=== PATIENT | male | born 1960 | race Caucasian/White ===

== ENCOUNTER 2022-11-25 07:49 | Outpatient (OUT) | payer OTHER, SELFPAY ==
[2022-11-25 09:07] LABS: Alanine Aminotransferase 43 U/L (16-63); Anion Gap 13.4; Aspartate Amino Transferase 17 U/L (15-37); BUN Creatinine Ratio 16.7; Calcium 8.8 mg/dL (8.5-10.1); Carbon Dioxide 29.2 mmol/L (21.0-32.0); Chloride 99 mmol/L (98-107); Chol HDL Ratio 5.4; Cholesterol 174 mg/dL (<=200); Estimated GFR (African America >60 (>=60); Estimated GFR (Non-African Ame >60 (>=60); Glucose 109 mg/dL (74-106); HDL Cholesterol 32 mg/dL (40-60); Potassium 4.6 mmol/L (3.5-5.1); Sodium 137 mmol/L (136-145); Triglycerides 518 mg/dL (<=150); VLDL CHOLESTEROL 103.6 mg/dL
[2022-11-25 09:12] LABS: LDL Cholesterol Direct 71 mg/dL
== END 2022-11-25 07:50 | disposition home or self-care (01) ==
LOC: LAB 07:49
PROVIDERS: PCP Family Medicine
DX: E78.5 Hyperlipidemia, unspecified (principal); I10 Essential (primary) hypertension
CPT/HCPCS: 36415; 80048; 80061; 83721; 84450; 84460

== ENCOUNTER 2023-02-03 05:44 | Emergency (ER) | payer OTHER, SELFPAY ==
[2023-02-03] VITALS (8 sets, daily range): BP systolic 134–138; BP diastolic 77–89; PULSE 72–73; RESP 18–35; TEMP 36.6; O2SAT 95–98; BMI 29.9
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
--- NOTE | 2023-02-03 06:28 | ECG_ITS ---
The [facility] Test Date: 2023-02-03 Pat Name: EVI JACOME Department: Room: - Gender: Male [employer]: : 1960 Requested By: AMELIE FAJARDO Order Number: [id number] Reading MD: ERIC HOOK Measurements Intervals [place] Rate: 67 P: 90 CT: 130 QRS: 77 QRSD: 82 T: 73 QT: 380 QTc: 396 Interpretive Statements 1100 Sinus rhythm 4068 Nonspecific Twave abnormality 9130 borderline ECG No previous ECG available for comparison Electronically Signed On 02-03-2023 7:10:46 EST by ERIC HOOK
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
[2023-02-03] MEDS: METHOCARBAMOL 500 MG TABLET 1000 MG PO (08:37)
[2023-02-03] MEDS: KETOROLAC TROMETHAMINE 10 MG TABLET PO (08:37)
[2023-02-03] MEDS: HYDROCODONE/ACET 5-325 MG TABLET 1 TAB PO (08:37)
== END 2023-02-03 09:01 | disposition home or self-care (01) ==
PROVIDERS: Emergency Provider Emergency Medicine; PCP Family Medicine
DX: S62.342A Nondisplaced fracture of base of third metacarpal bone, right hand, initial encounter for closed fracture (principal); S62.344A Nondisplaced fracture of base of fourth metacarpal bone, right hand, initial encounter for closed fracture; S20.219A Contusion of unspecified front wall of thorax, initial encounter; S09.8XXA Other specified injuries of head, initial encounter; S16.1XXA Strain of muscle, fascia and tendon at neck level, initial encounter; S00.31XA Abrasion of nose, initial encounter; S80.211A Abrasion, right knee, initial encounter; V49.49XA Driver injured in collision with other motor vehicles in traffic accident, initial encounter
CPT/HCPCS: 70450; 71045; 72125; 73130; 73562; 73590; 93005; 99285

== ENCOUNTER 2023-02-05 13:58 | Outpatient (OUT) | payer OTHER, SELFPAY ==
--- OUTSIDE RECORDS SUMMARY | 2023-02-05 14:01 | XMS_ITS | CCD ---
Author Name Unknown Address [address] [facility] [address] [place] [address] Organization [facility] Care Team Providers Care Oracle Soa Consultant Name Role Phone TRABOULSSI, MOURHAF Unavailable Unavailable TRABOULSSI, MOURHAF Unavailable Unavailable MISC, DR VIVEROS Admitting Unavailable MISC, DR VIVEROS Attending Unavailable THOMSON, DR MARISA Sarkar Primary Care Unavailable THOMSON, DR MARISA Sarkar Attending Unavailable THOMSON, DR MARISA Sarkar Primary Care Unavailable THOMSON, DR MARISA Sarkar Admitting Unavailable REQUEST, DR MICHEL LISTED Admitting Unavaila ble REQUEST, DR MICHEL LISTED Attending Unavaila ble REQUEST, DR MICHEL LISTED Consulting Unavaila ble THOMSON, DR MARISA Sarkar Primary Care Unavailable THOMSON, DR MARISA Sarkar Consulting Unavailable THOMSON, DR MARISA Sarkar Attending Unavailable THOMSON, DR MARISA Sarkar Admitting Unavailable THOMSON, DR MARISA Sarkar Primary Care Unavailable WEST, DR STEVE Farah Consulting Unavailable ZIEBER, DR ALIREZA Chicas Consulting Unavailable SIEGALROSA Attending Unavailable SIEGAL, ROSA Admitting Unavailable THOMSON, DR MARISA Sarkar Primary Care Unavailable CardonaMady Consulting Unavailable SIEGALROSA Consulting Unavailable THOMSON, DR MARISA Sarkar Attending Unavailable THOMSON, DR MARISA Sarkar Consulting Unavailable THOMSON, DR MARISA Sarkar Primary Care Unavailable THOMSON, DR MARISA Sarkar Admitting Unavailable ZIEBER, DR ALIREZA Chicas Consulting Unavailable THOMSON, DR MARISA Sarkar Attending Unavailable THOMSON, DR MARISA Sarkar Consulting Unavailable THOMSON, DR MARISA Sarkar Primary Care Unavailable THOMSON, DR MARISA Sarkar Admitting Unavailable ZIEBER, DR ALIREZA Chicas Consulting Unavailable TIMMIS, DR ADDISON Admitting Unavailable TIMMIS, DR ADDISON Attending Unavailable TIMMIS, DR ADDISON Consulting Unavailable THOMSON, DR MARISA Sarkar Primary Care Unavailable WEST, DR STEVE Farah Consulting Unavailable THOMSON, DR MARISA Sarkar Attending Unavailable THOMSON, DR MARISA Sarkar Consulting Unavailable THOMSON, DR MARISA Sarkar Primary Care Unavailable THOMSON, DR MARISA Sarkar Admitting Unavailable ZIEBER, DR ALIREZA Chicas Consulting Unavailable ANITA, DR MARISA Sarkar Attending Unavailable ANITA, DR MARISA Sarkar Admitting Unavailable ANITA, DR MARISA Sarkar Consulting Unavailable ANITA, DR MARISA Sarkar Primary Care Unavailable ROSA RAE Admitting Unavailable ROSA RAE Attending Unavailable ANITA, DR MARISA Sarkar Primary Care Unavailable Brandon Molina Unavailable Unavailable Unavailable Marisa Thomson Unavailable MD Marisa Thomson Primary Care Provider DO Arnav Leyva Attending Provider Arnav Leyva Unavailable Jonathan Still Unavailable Dr. Marisa Thomson Primary Care Unavailab jackie Garcia, Dr. Baker Attending Unavaila ble Jose, Dr. Baker Referring Unavaila ble Medications Current Medications Medication Drug Class(es) Dates Sig (Normalized) Sig (Original) Acetaminophen (1 source) Tylenol Active CBD gummies (1 source) CBD gummies Acti ve [facility] Natural Fish Oil 1000 MG (2 sources) take 2 capsules by mouth once daily [facility] Natural Fish Oil 1000 MG TAKE 2 CAPSULES BY MOUTH DAILY Oral for 30 Active docusate sodium 100 mg oral capsule (2 sources) take 1 capsule by mouth every twenty-four hours Stool Softener 100 MG 1 capsule as needed Orally Once a day Active Vitamin D3 125 MCG (5000 UT) (2 sources) take 1 tablet by jabier th once daily Vitamin D3 125 MCG (5000 UT) 1 tablet Orally Once a day Active Completed/Discontinued Medications Medication Drug Class(es) Dates Sig (Normalized) Sig (Original) aspirin 81 mg delayed release oral tablet (7 sources) Platelet Aggregation Inhibitor, Nonsteroidal Anti-inflammatory Drug Start: 10-15-2021 take 1 tablet by mouth once daily Aspirin 81 MG Oral Tablet Delayed Release TAKE 1 TABLET DAILY. Quantity: 90 Refills: 3 Ordered: 14-Oct-2022 Venecia Garcia MD Start : 15-Oct-2021 Active Fill at patient request only n take 1 tablet by mouth once nicole y Aspirin 81 81 MG 1 tablet Orally Once a day Active atorvastatin 80 mg oral tablet (7 sources) HMG-CoA Reductase Inhibitor Start: 07-27-2022 take 1 tablet by mouth once daily at bedtime Atorvastatin Calcium 80 MG Oral Tablet TAKE ONE TABLET BY MOUTH DAILY AT BEDTIME Quantity: 90 Refills: 3 Ordered: 27-Jul-2022 Yobany Ordonez APRNFidelAUTO BODY ESTIMATORCrissy Start : 27-Jul-2022 Active take 1 tablet by jabier th every twenty-four hours Atorvastatin Calcium 80 MG 1 tablet Oral ly Once a day Active celecoxib 200 mg oral capsule (6 sources) Nonsteroidal Anti-inflammatory Drug take 1 capsule by mouth once daily at mealtime Celecoxib 200 MG Oral Capsule TAKE 1 CAPSULE DAILY WITH A MEAL. Quantity: 0 Refills: 0 Ordered: 15-Oct-2021 DO Active CeleBREX Active cholecalciferol 0.125 mg oral capsule (5 sources) Vitamin D take 1 capsule by mouth once daily Vitamin D3 125 MCG (5000 UT) Oral Capsule TAKE 1 CAPSULE Daily Quantity: 0 Refills: 0 Ordered: 15-Oct-2021 DO Active docosahexaenoic acid 120 mg / eicosapentaenoic acid 180 mg oral capsule (5 sources) take 1 capsule by mouth twice daily Fish Oil 1000 MG Oral Capsule Take 1 capsule twice daily Quantity: 0 Refills: 0 Ordered: 15-Oct-2021 DO Active hydroCHLOROthiazide 12.5 mg / lisinopril 20 mg oral tablet (7 sources) Thiazide Diuretic, Angiotensin Converting Enzyme Inhibitor take 1 tablet by mouth twice daily Lisinopril-hydroCHL OROthiazide 20-12.5 MG Oral Tablet TAKE 1 TABLET TWICE DAILY. Quantity: 180 Refills: 3 Ordered: 14-Oct-2022 Venecia Garcia MD Active take 1 tablet by jabier th every twenty-four hours Lisinopril-hydroCHLOROthiazide 20-12.5 M G 1 tablet Orally Once a day Active krill oil 500 mg oral capsule (4 sources) take 1 capsule by mouth once daily [place]-3 500 MG Oral Capsule TAKE 1 CAPSULE Daily Quantity: 0 Refills: 0 Ordered: 15-Oct-2021 DO Active metoprolol tartrate 100 mg oral tablet (8 sources) beta-Adrenergic Ramirez Start: 08-24-2022 take 1 tablet by mouth twice daily Metoprolol Tartrate 100 MG Oral Tablet Take 1 tablet twice daily Quantity: 60 Refills: 11 Ordered: 24-Aug-2022 Venecia Garcia MD Start : 24-Aug-2022 Active take 1 tablet by jabier th every twelve hours Metoprolol Tartrate 50 MG 1 tablet with food Orally Twice a day Active take 1 tablet by mouth twice ranjana ly Metoprolol Tartrate 100 MG Oral Tablet Take 1 tablet twice daily Quantity: 180 Refills: 3 Ordered: 04-Aug-2021 Venecia Garcia MD Active Stool Softener TABS (5 sources) Stool Softener T ABS TAKE 1 TABLET DAILY DIRECTED. Quantity: 0 Refills: 0 Ordered: 15-Oct-2021 DO Active Super B Complex TABS (5 sources) Super B Complex TABS TAKE 1 TABLET DAILY DIRECTED. Quantity: 0 Refills: 0 Ordered: 15-Oct-2021 DO Active traZODone hydrochloride 150 mg oral tablet (6 sources) Serotonin Reuptake Inhibitor Start: 2 take 1 tablet by mouth at bedtime traZODone HCl - 150 MG Oral Tablet TAKE 1 TABLET AT BEDTIME. Quantity: 0 Refills: 0 Ordered: 02-Oct-2021 DO Start : 04-Sep-2021 Active traZODone HCl Ac tive triamcinolone acetonide 40 mg/ml injectable suspension (1 source) Corticosteroid Start: 03-02-2022 Kenalog-40 Feb, 40 mg 24 hr venlafaxine 150 mg extended release oral capsule (2 sources) Serotonin and Norepinephrine Reuptake Inhibitor take 1 capsule by mouth every twenty-four hours Venlafaxine HCl ER 150 MG 1 capsule with food Orally Once a day Not-Taking Problems Active Problems Problem Classification Problem Date Documented Da te Episodic/Chronic Abdominal pain (6 sources) Generalized abdominal tenderness; Translations: [Finding of sensation of abdomen] Onset: 1 Episodic Acute cerebrovascular disease (6 sources) Cerebrovascular accident; Translations: [Cerebral artery occlusion, unspecified with cerebral infarction] Chronic Alcohol-related disorders (2 sources) Alcoholic liver damage; Translations: [Alcoholic liver disease, unspecified] Chronic Coronary atherosclerosis and other heart disease (1 source) Coronary atherosclerosis and other heart disease Onset: 8 Disorders of lipid metabolism (6 sources) Hyperlipidemia; Translations: [Other and unspecified hyperlipidemia] Chronic Essential hypertension (5 sources) Benign essential hypertension; Translations: [Benign essential hypertension] Chronic Gastrointestinal hemorrhage (2 sources) Gastrointestinal hemorrhage; Translations: [Melena] Episodic Malaise and fatigue (6 sources) Chronic fatigue syndrome; Translations: [Chronic fatigue syndrome] Chronic Other connective tissue disease (4 sources) Other muscle spasm; Translations: [OTHER MUSCLE SPASM] Onset: 1 Episodic Other gastrointestinal disorders (2 sources) Diarrhea; Translations: [Diarrhea, unspecified] Episodic Other gastrointestinal disorders (2 sources) Urgent desire for stool; Translations: [Fecal urgency] Episodic Other lower respiratory disease (7 sources) Shortness of breath; Translations: [Dyspnea] Onset: 8 Episodic Other non-traumatic joint disorders (4 sources) Other specified arthritis, unspecified site; Translations: [OTHER SPECIFIED ARTHRITIS UNS SITE] Onset: 2 Chronic Other non-traumatic joint disorders (1 source) Derangement of right shoulder joint; Translations: [Other specific joint derangements of right shoulder, not elsewhere classified] Chronic Other non-traumatic joint disorders (1 source) Other specific joint derangements of right shoulder, not elsewhere classified Chronic Other non-traumatic joint disorders (2 sources) Pain in unspecified hip; Translations: [PAIN IN UNSPECIFIED HIP] Onset: 1 Resolved: 1 Episodic Other non-traumatic joint disorders (1 source) Pain in unspecified knee; Translations: [PAIN IN UNSPECIFIED KNEE] Onset: 1 Episodic Other non-traumatic joint disorders (4 sources) Pain in right hip; Translations: [PAIN IN RIGHT HIP] Onset: 1 Episodic Other non-traumatic joint disorders (1 source) Pain in left hip; Translations: [PAIN IN LEFT HIP] Onset: 1 Episodic Other non-traumatic joint disorders (1 source) Pain in right knee; Translations: [PAIN IN RIGHT KNEE] Onset: 1 Episodic Other non-traumatic joint disorders (1 source) Pain in left knee; Translations: [PAIN IN LEFT KNEE] Onset: 1 Episodic Other non-traumatic joint disorders (1 source) Pain in right shoulder Episodic Other non-traumatic joint disorders (1 source) Other specified joint disorders, right shoulder Episodic Other nutritional; endocrine; and metabolic disorders (1 source) Obesity; Translations: [Obesity, unspecified] Chronic Other nutritional; endocrine; and metabolic disorders (5 sources) Body mass index 25-29 - overweight; Translations: [Body mass index (BMI) 28.0-28.9, adult] Episodic Other screening for suspected conditions (not mental disorders or infectious disease) (2 sources) Elevated liver enzymes level; Translations: [Other specified abnormal findings of blood chemistry] Episodic Pancreatic disorders (not diabetes) (2 sources) Exocrine pancreatic insufficiency; Translations: [Exocrine pancreatic insufficiency] Episodic Peripheral and visceral atherosclerosis (2 sources) Peripheral vascular disease, unspecified; Translations: [PAD (peripheral artery disease)] Chronic Spondylosis; intervertebral disc disorders; other back problems (7 sources) Spondylosis without myelopathy or radiculopathy, lumbar region; Translations: [Spondylosis without myelopathy or radiculopathy, cervical region] Onset: 1 Chronic Spondylosis; intervertebral disc disorders; other back problems (15 sources) Radiculopathy, site unspecified; Translations: [Spinal stenosis, cervical region] Onset: 1 Episodic Substance-related disorders (8 sources) Smoker; Translations: [Nicotine dependence, unspecified, uncomplicated] Onset: 1 Resolved: 1 Chronic Comment on above: 1 PPD; Unclassified (2 sources) Shortness of breath / R06.02(ICD-9) Onset: 8 Unclassified (1 source) Chronic fatigue, unspecified / R53.82(ICD-9) Onset: 8 Past or Other Problems Problem Classification Problem Date Documented Da te Episodic/Chronic Other injuries and conditions due to external causes (4 sources) Unspecified foreign body in respiratory tract, part unspecified causing other injury, initial encounter; Translations: [UNS FB RESP TRACT UNS OTH INJ INIT] Onset: 05-16-2020 Episodic Other nutritional; endocrine; and metabolic disorders (7 sources) Body mass index 30+ - obesity; Translations: [Body Mass Index 31.0-31.9, adult] Resolved: 10-15-2021 Chronic Other nutritional; endocrine; and metabolic disorders (6 sources) Overweight; Translations: [Overweight] Resolved: 10-15-2021 Episodic Other nutritional; endocrine; and metabolic disorders (5 sources) Overweight in adulthood with body mass index of 25 or more but less than 30; Translations: [Body Mass Index 28.0-28.9, adult] Resolved: 10-15-2021 Episodic Other upper respiratory disease (1 source) Laryngeal spasm; Translations: [LARYNGEAL SPASM] Onset: 05-23-2020 Episodic Results Test Name Value Interpretation Reference Range Facility Office Visit (Cardiology)on 10-14-2022 Follow-up visit Diagnoses/Problems Assessed Benign essential hypertension (401.1) (I10) Current smoker (305.1) (F17.200) 1 PPD CVA (cerebral vascular accident) (434.91) (I63.9) Hyperlipidemia (272.4) (E78.5) Shortness of breath (786.05) (R06.02) Class 1 obesity with body mass index (BMI) of 30.0 to 30.9 in adult (278.00,V85.30) (E66.9,Z68.30) Orders Benign essential hypertension Renew: Lisinopril-hydroCHLOR Othiazide 20-12.5 MG Oral Tablet; TAKE 1 TABLET TWICE DAILY Benign essential hypertension, Hyperlipidemia ALT - Alanine Aminotransferase, Serum; Status:Active - Retrospective Authorization; Requested for:[id number]; ALT - Alanine Aminotransferase, Serum; Status:Active - Retrospective Authorization; Requested for:[id number]; AST; Status:Active - Retrospective Authorization; Requested for:[id number]; AST; Status:Active - Retrospective Authorization; Requested for:[id number]; Basic Metabolic Panel; Status:Active - Retrospective Authorization; Requested for:[id number]; Basic Metabolic Panel; Status:Active - Retrospective Authorization; Requested for:[id number]; Lipid Panel; Status:Active - Retrospective Authorization; Requested for:[id number]; Lipid Panel; Status:Active - Retrospective Authorization; Requested for:[id number]; Class 1 obesity with body mass index (BMI) of 30.0 to 30.9 in adult Healthy Weight Tips; Status:Complete - Retrospective Authorization; Done: [id number] Some eating tips that can help you lose weight.; Status:Complete - Retrospective Authorization; Done: [id number] CVA (cerebral vascular accident), Hyperlipidemia Renew: Aspirin 81 MG Oral Tablet Delayed Release; TAKE 1 TABLET DAILY SocHx: Current smoker Tobacco Use Screening; Status:Complete; Done: [id number] You need to stop smoking. Though it is not easy, more than half of all adult smokers have quit. We encourage you to write down all the reasons you should quit smoking and set a quit date for yourself. Ask us how we can help. You may also call 8-060-GXBK-NOW for free resources and assistance.; Status:Complete - Retrospective Authorization; Done: [id number] Patient Instructions Please bring all medicines, vitamins, and herbal supplements with you when you come to the office. Prescriptions will not be filled unless you are compliant with your follow up appointments or have a follow up appointment scheduled as per instruction of your physician. Refills should be requested at the time of your visit. Follow up in 1 year. Chief Complaint JOSEPH JACOME is being seen for an annual follow-up of. History of Present Illness Patient is here for follow-up continue management for previous evaluation for shortness of breath fatigue and tiredness, hyperlipidemia, tobacco use and obesity. Since last time I saw him he denies any cardiac complaint of chest pain, palpitation, lightheadedness, dizziness or syncope. He failed to do his lab work as ordered. ASSESSMENT: 1. Prior evaluation of fatigue, tiredness, and shortness of breath, improved. Stress test is negative. He reports marked improvement and described functional class I 2. Severe hypertriglyceridemia, he failed to do his lab work 3. Active tobacco use and chronic obstructive pulmonary disease. 4. Obesity. With recent 10 pound weight gain 5. Hypertension, controlled. 6. Prior lacunar infarct presented with paresthesia. Symptoms has resolved RECOMMENDATION: 1. The patient was counseled regarding risk factor adjustment. 2. The patient was advised to continue his effort to lose weight to exercise and stop smoking. 3. The patient continued to follow low-cholesterol, low-fat diet. 4. I recommended follow-up in 1 year and a plan to repeat his lab work now and prior to next year's office visit Surgical History Problems History of Appendectomy History of Back surgery History of Colonoscopy [id number] Dr Steve Rizzo History of Rotator cuff repair Past Medical History Problems History of BMI 28.0-28.9,adult (V85.24) (Z68.28) Resolved Date: 15 Oct 2021 History of BMI 31.0-31.9,adult (V85.31) (Z68.31) Resolved Date: 15 Oct 2021 History of Overweight (278.02) (E66.3) Resolved Date: 15 Oct 2021 Current Meds Medication NameInstruction Aspirin 81 MG Oral Tablet Delayed ReleaseTAKE 1 TABLET DAILY. Atorvastatin Calcium 80 MG Oral TabletTAKE ONE TABLET BY MOUTH DAILY AT BEDTIME Celecoxib 200 MG Oral CapsuleTAKE 1 CAPSULE DAILY WITH A MEAL. Fish Oil 1000 MG Oral CapsuleTake 1 capsule twice daily Lisinopril-hydroCHLOR Othiazide 20-12.5 MG Oral TabletTAKE 1 TABLET TWICE DAILY. Metoprolol Tartrate 100 MG Oral TabletTake 1 tablet twice daily Stool Softener TABSTAKE 1 TABLET DAILY DIRECTED. Super B Complex TABSTAKE 1 TABLET DAILY DIRECTED. traZODone HCl - 150 MG Oral TabletTAKE 1 TABLET AT BEDTIME. Vitamin D3 125 MCG (5000 UT) Oral CapsuleTAKE 1 CAPSULE Daily Allergies Medication No Known Drug Allergies Recorded By: Guillermina Valdez; 05/01/2021 6:57:44 (more content not included)... Normal [place] Tobacco Screening.on 023 Adult depression screening assessment No [facility] [address] [employer] Work Phone: Fall risk assessment c) Not medically indicated [facility] [address] [place] Work Phone: Tobacco use status [facility] a) Yes [facility] [address] [place] Work Phone: Tobacco Screening. Yes [facility] [address] [place] Work Phone: XR shoulder RT min 2V*on XR shoulder RT min 2V* [facility] Other XR shoulder RT min 2V* [facility] [employer] Other XR shoulder RT min 2V* [address] [place] [address] [facility] Other XR shoulder RT min 2V* [place] [id number] [facility] Other XR shoulder RT min 2V* XRay Report [facility] Other XR shoulder RT min 2V* Signed [facility] Other XR shoulder RT min 2V* Patient: Joseph Jacome MR#: [id number] [facility] Other XR shoulder RT min 2V* [id number] [facility] Other XR shoulder RT min 2V* : 1960 Acct:[id number] [facility] Other XR shoulder RT min 2V* Age/Sex: 61 / M ADM Date: 03/02/22 [facility] Other XR shoulder RT min 2V* Loc: [facility] Room: Type: [facility] [address] [facility] Other XR shoulder RT min 2V* Attending Dr: Arnav Leyva DO [facility] Other XR shoulder RT min 2V* Copies to: Arnav Leyva DO [facility] Other XR shoulder RT min 2V* Ordering Provider: Arnav Leyva DO [facility] Other XR shoulder RT min 2V* Date of Service: 03/02/22 [facility] Other XR shoulder RT min 2V* XR/XR shoulder RT min 2V*: Acute pain of right shoulder [facility] Other XR shoulder RT min 2V* 4 views plain filmRIGHT shoulder [facility] Other XR shoulder RT min 2V* HISTORY:RIGHT anterior shoulder pain for months [facility] Other XR shoulder RT min 2V* COMPARISON:None [facility] Other XR shoulder RT min 2V* No fracture, dislocation or soft tissue abnormality identified.Mild degenerative changes identified. [facility] Other XR shoulder RT min 2V* XR/XR shoulder RT min 2V* [facility] Other XR shoulder RT min 2V* IMPRESSION:No acute findings. [facility] Other XR shoulder RT min 2V* Impression dictated by: Brandon Cramer M.D.03/02/2022 2:10 PM [facility] Other XR shoulder RT min 2V* Dictation Location: [place] [address] [facility] Other XR shoulder RT min 2V* Transcribed By: PWS 03/02/22 [facility] Other XR shoulder RT min 2V* Dictated By: Brandon Cramer DO 03/02/22 [facility] Other XR shoulder RT min 2V* Signed By: [facility] Other XR shoulder RT min 2V* 03/02/22 [facility] Other Tobacco Screening.on Adult depression screening assessment No -[facility] [address] Work Phone: Fall risk assessment a) No falls within the last year [facility] [address] [place] Work Phone: Tobacco use status [facility] a) Yes [facility] [address] Work Phone: Tobacco Screening. Yes [facility] [address] [place] Work Phone: CBC AUTO DIFFon 03-06-2021 BASO # 0.1 103/ul Normal 0.0-0.1 [facility] Comment on above: Performed By: #### D ATCBC #### [facility] [address] [place] [address] Dr. Qasim Schaefer Basophils/100 WBC (Bld) 0.6 % Normal 0.2-2.0 [facility] Comment on above: Performed By: #### D ATCBC #### [facility] [address] [place] [address] Dr. Qasim Schaefer EO # 0.1 103/ul Normal 0.0-0.7 [facility] Comment on above: Performed By: #### D ATCBC #### [facility] [address] [address] [address] Qasim Schaefer Eosinophils/100 WBC (Bld) 1.2 % Normal 0.9-7.0 [facility] Comment on above: Performed By: #### D ATCBC #### [facility] [address] [place] [address] Dr. Qasim Schaefer Erythrocyte distribution width (RBC) [Ratio] 12.3 % Normal 11.0-15.0 [facility] Comment on above: Performed By: #### D ATCBC #### [facility] [address] [place] [address] Dr. Qasim Schaefer Hematocrit (Bld) [Volume fraction] 41.7 % Critically low 42.0-54.0 [facility] Comment on above: Performed By: #### D ATCBC #### [facility] [address] [place] [address] Dr. Qasim Schaefer Hemoglobin (Bld) [Mass/Vol] 14.7 g/dL Normal 14.0-18.0 [facility] Comment on above: Performed By: #### D ATCBC #### [facility] [address] [place] [address] Dr. Qasim Schaefer IG # 0.06 10e3/ul Critically high 0.00-0.03 [facility] Comment on above: Performed By: #### D ATCBC #### [facility] [address] [place] [address] Dr. Qasim Schaefer IG % 0.6 % Critically high 0.0-0.5 [facility] Comment on above: Performed By: #### D ATCBC #### [facility] [address] [place] [address] Dr. Qasim Schaefer LYMPH # 2.8 103/ul Normal 1.2-3.8 [facility] Comment on above: Performed By: #### D ATCBC #### [facility] [address] [place] [address] Dr. Qasim Schaefer Lymphocytes/100 WBC (Bld) 30.5 % Normal 20.5-60.0 [facility] Comment on above: Performed By: #### D ATCBC #### [facility] [address] [address] [address] Qasim Schaefer MCH (RBC) [Entitic mass] 34.0 pg Normal 25.9-34.0 [facility] Comment on above: Performed By: #### D ATCBC #### [facility] [address] [place] [address] Dr. Qasim Schaefer MCHC (RBC) [Mass/Vol] 35.3 g/dL Critically high 29.9-35.2 [facility] Comment on above: Performed By: #### D ATCBC #### [facility] [address] [place] [address] Dr. Qasim Schaefer MCV (RBC) [Entitic vol] 96.5 fL Critically high 80.0-94.0 [facility] Comment on above: Performed By: #### D ATCBC #### [facility] [address] [place] [address] Dr. Qasim Schaefer MONO # 0.8 103/ul Normal 0.3-0.8 [facility] Comment on above: Performed By: #### D ATCBC #### [facility] [address] [place] [address] Dr. Qsaim Schaefer Monocytes/100 WBC (Bld) 8.2 % Normal 1.7-12.0 [facility] Comment on above: Performed By: #### D ATCBC #### [facility] [address] [place] [address] Dr. Qasim Schaefer NEUT # 5.5 103/ul Normal 1.4-6.5 [facility] Comment on above: Performed By: #### D ATCBC #### [facility] [address] [place] [address] Dr. Qasim Schaefer Neutrophils/100 WBC (Bld) 58.9 % Normal 43.0-75.0 [facility] Comment on above: Performed By: #### D ATCBC #### [facility] [address] [place] [address] Dr. Qasim Schaefer Platelet mean volume (Bld) [Entitic vol] 10.1 fL Normal 9.5-13.5 [facility] Comment on above: Performed By: #### D ATCBC #### [facility] [address] [address] [address] Qasim Schaefer PLT 238 103/ul Normal 150-450 [facility] Comment on above: Performed By: #### D ATCBC #### [facility] [address] [address] [address] Qasim Schaefer RBC 4.32 106/ul Critically low 4.70-6.10 [facility] Comment on above: Performed By: #### D ATCBC #### [facility] [address] [address] [address] Qasim Schaefer WBC 9.3 103/ul Normal 4.0-11.0 [facility] Comment on above: Performed By: #### D ATCBC #### [facility] [address] [address] [address] Qasim Schaefer CRPon 03-06-2021 CRP [Mass/Vol] mg/L Normal <=1.0 [facility] Comment on above: Performed By: #### C RP ####[facility] [address] [id number] Schaefer ROBERT - TSHon 03-06-2021 TSH 1.600 uIU/mL Normal 0.470-4.680 [facility] Comment on above: Performed By: #### D ATTSH, DATPSA, DATBMP ####[facility] [address] [address]DrElodia Schaefer TSH RANGE SEE BELOW Normal [facility] Comment on above: Result Comment: <0.3 4 UIU/ml HYPERTHYROID 0.34-5.60 UIU/ml EUTHYROID >5.60 UIU/ml HYPOTHYROID Performed By: #### D ATTSH, DATPSA, DATBMP ####[facility] [address] [address]DrElodia Schaefer ROBERT- BMP WITH LIPIDon 2021 Anion gap [Moles/Vol] 10.9 mmol/L Normal [facility] Comment on above: Performed By: #### D ATTSH, DATPSA, DATBMP ####[facility] [address] [place], [place] [address]Dr. Qasim Schaefer Calcium [Mass/Vol] 9.0 mg/dL Normal 8.4-10.2 [facility] Comment on above: Performed By: #### D ATTSH, DATPSA, DATBMP ####[facility] [address] [place], [place] [address]Dr. Qasim Schaefer Chloride [Moles/Vol] 100 mmol/L Normal 98-107 [facility] Comment on above: Performed By: #### D ATTSH, DATPSA, DATBMP ####[facility] [address] [place], [place] [address]Dr. Qasim Schaefer Cholesterol [Mass/Vol] 171 mg/dL Normal <=200 [facility] Comment on above: Performed By: #### D ATTSH, DATPSA, DATBMP ####[facility] [address] [place], [place] [address]Dr. Qasim Schaefer Cholesterol in HDL [Mass/Vol] 40 mg/dL Normal [facility] Comment on above: Performed By: #### D ATTSH, DATPSA, DATBMP ####[facility] [address] [place], [place] [address]Dr. Qasim Schaefer Cholesterol in LDL [Mass/Vol] 71.6 mg/dL Normal [facility] Comment on above: Performed By: #### D ATTSH, DATPSA, DATBMP ####[facility] [address] [place], [place] [address]Dr. Qasim Schaefer CO2 [Moles/Vol] 26.6 mmol/L Normal 22.0-30.0 [facility] Comment on above: Performed By: #### D ATTSH, DATPSA, DATBMP ####[facility] [address] [place], [place] [address]Dr. Qasim Schaefer Creatinine [Mass/Vol] 0.96 mg/dL Normal 0.66-1.25 [facility] Comment on above: Performed By: #### D ATTSH, DATPSA, DATBMP ####[facility] [address] [id number]. Qasim Schaefer EGFR-AF WALLISIAN >60 Normal >=60 [facility] Comment on above: Performed By: #### D ATTSH, DATPSA, DATBMP ####[facility] [address] [id number]. Qasim Schaefer EGFR-NON AF WALLISIAN >60 Normal >=60 [facility] Comment on above: Performed By: #### D ATTSH, DATPSA, DATBMP ####[facility] [address] [address]Dr. Qasim Schaefer Glucose [Mass/Vol] 92 mg/dL Normal 74-106 [facility] Comment on above: Performed By: #### D ATTSH, DATPSA, DATBMP ####[facility] [address] [address]Dr. Qasim Schaefer HDL NORMAL > or = 60 mg/dl - LO W CARDIOVASCULAR RISK <40 mg/dl - HIGH CARDIOVASCULAR RISK Normal [facility] Comment on above: Performed By: #### D ATTSH, DATPSA, DATBMP ####[facility] [address] [address]Dr. Qasim Schaefer LDL CALC NORMAL SEE BELOW Normal [facility] Comment on above: Result Comment: <100 mg/dl OPTIMAL 100 - 129 mg/dl NEAR OR ABOVE OPTIMAL 130 - 159 mg/dl BORDERLINE HIGH 160 - 189 mg/dl HIGH >190 mg/dl VERY HIGH Performed By: #### D ATTSH, DATPSA, DATBMP ####[facility] [address] [address]Dr. Qasim Schaefer Potassium [Moles/Vol] 4.5 mmol/L Normal 3.4-5.0 [facility] Comment on above: Performed By: #### D ATTSH, DATPSA, DATBMP ####[facility] [address] [address]Dr. Qasim Schaefer Sodium [Moles/Vol] 133 mmol/L Critically low 137-145 [facility] Comment on above: Performed By: #### D ATTSH, DATPSA, DATBMP ####[facility] [address] [address]Dr. Qasim Schaefer Triglyceride [Mass/Vol] 297 mg/dL Critically high <=150 [facility] Comment on above: Performed By: #### D ATTSH, DATPSA, DATBMP ####[facility] [address] [address]Dr. Qasim Schaefer Urea nitrogen [Mass/Vol] 23.0 mg/dL Critically high 9.0-20.0 [facility] Comment on above: Performed By: #### D ATTSH, DATPSA, DATBMP ####[facility] [address] [address]Dr. Qasim Schaefer Urea nitrogen/Creatini ne [Mass ratio] 24.0 mg/mg Normal [facility] Comment on above: Performed By: #### D ATTSH, DATPSA, DATBMP ####[facility] [address] [address]Dr. Qasim Schaefer VLDL CALC 59.4 mg/dL Normal [facility] Comment on above: Performed By: #### D ATTSH, DATPSA, DATBMP ####[facility] [address] [address]Dr. Qasim Schaefer SED RATE [facility] 2021 SED RATE 9 mm/hr Normal <=20 [facility] Comment on above: Performed By: #### S EDR ####[facility] [address] [address]Dr. Qasim Schaefer XR HIPS SONY 5V W PELVISon XR HIPS SONY 5V W PELVIS EXAMINATION: XR HIPS SONY 5V W PELVIS HISTORY: Hip pain COMPARISON: No relevant comparison available. FINDINGS: RIGHT FINDINGS: BONES: No significant arthropathy or acute abnormality. SOFT TISSUES: No visible soft tissue swelling. OTHER: Marked atherosclerotic disease. LEFT FINDINGS: BONES: No significant arthropathy or acute abnormality. SOFT TISSUES: No visible soft tissue swelling. OTHER: Negative. IMPRESSION: RIGHT CONCLUSION: 1. No acute bone abnormality or significant degenerative changes. LEFT CONCLUSION: 1. No acute bone abnormality significant degenerative changes. 2. Marked atherosclerotic disease. Electronically authenticated by: ALIREZA COLEMAN Date: 2021-01-16 13:39 Normal [facility] XR KNEE SONY 4V or >on 2020 XR KNEE SONY 4V or > EXAM: XR KNEE SNOY 4V or > HISTORY: Knee pain COMPARISON: None. TECHNIQUE: 4 views of the right knee and 4 views of the left knee were obtained. FINDINGS: Right knee: Chondrocalcinosis. Mild patellofemoral, marginal spurring. Vascular calcification. Left knee: There is subchondral lucency at the medial tibial condyle suggestive of an osteochondral defect. Mild marginal spurring of the patellofemoral compartment. IMPRESSION: 1. Mild bilateral, knee joint osteoarthritis predominantly at the patellofemoral compartments. 2. Vascular calcifications. EXAM: Lumbar spine. INDICATION: Low back pain. COMPARISON: MRI of the lumbar spine dated 04/23/2020. TECHNIQUE: 5 views of lumbar spine were obtained. FINDINGS: Extensive vascular calcifications are present. There is severe loss of disc height at L4-L5 and L5-S1. Mild loss of disc height at L3-L4. Facet joint osteoarthritis is seen at L3-L4, L4-L5 and L5-S1. Grade 1 anterolisthesis is seen at L4 over L5. IMPRESSION: 1. Grade 1 anterolisthesis at L4 over L5. 2. Severe disc degenerative changes at L4-L5 and L5-S1. 3. Facet joint osteoarthritis at the lower lumbar spine. Electronically authenticated by: MADY CARDONA Date: 2021-01-16 18:12 Normal [facility] XR LSPINE W_OBLS AND FLEX_EX Ton 01-16-2021 XR LSPINE W_OBLS AND FLEX_EXT EXAMINATION: XR LSPINE W_OBLS AND FLEX_EXT HISTORY: Spondylosis without myelopathy COMPARISON: CT abdomen pelvis 10/06/2019 FINDINGS: BONES: Moderate degenerative facet arthropathy L5-S1. No fracture, lesion, or significant listhesis. DISC SPACES: Moderate narrowing L4-5. Moderate marked narrowing L5-S1. PARASPINOUS: Marked atherosclerotic disease of aorta and iliac arteries without visible aneurysm. OTHER: Negative. IMPRESSION: 1. L4-5, L5-S1 degenerative disc disease; marked at L5-S1; not appreciably changed compared to 10/06/2019 CT study. Electronically authenticated by: ALIREZA COLEMAN Date: 2021-01-16 11:44 Normal [facility] MRI CSPTAINA WO CONon 01-14-20 21 MRI CSPTAINA MCCAULEY CON EXAMINATION: MRI KELSEY MCCAULEY CON HISTORY: Pain in left arm , left side spasms, radiculopathy, bilateral arm pain COMPARISON: 09/12/2020 plain x-ray TECHNIQUE: A variety of imaging planes and parameters were utilized for visualization of suspected pathology. FINDINGS: CRANIOCERVICAL AREA: Normal foramen magnum with no Chiari malformation. PARASPINAL AREA: Normal with no visible mass. BONES: Normal alignment with no acute fracture or spondylolisthesis. Mild diffuse degenerative spondylosis. CORD: Normal caliber, contour, and signal intensity. CERVICAL DISC LEVELS: C2-C3: Early degenerative disc disease is present without focal protrusion or neural impingement. C3-C4: Mild diffuse disc/osteophyte complex and facet osteoarthropathy. No central canal stenosis. Moderate bilateral foraminal stenosis axial image 8 C4-C5: Disc desiccation. Posterior left foraminal disc/osteophyte formation. No central canal or right foraminal stenosis. Moderate narrowing of the left neural foramen C5-C6: Moderate disc space narrowing and disc desiccation. Moderate diffuse disc/osteophyte complex and facet osteoarthropathy. Minimal central canal stenosis down to 9.8 mm. No right foraminal stenosis. Mild left foraminal stenosis C6-C7: Mild to moderate disc space narrowing and disc desiccation. Moderate diffuse disc/osteophyte complex and facet osteoarthropathy. Narrowing of the central canal to 7.7 mm in AP dimension. Mild bilateral foraminal stenosis. C7-T1:. Early degenerative disc disease is present without focal protrusion or neural impingement. IMPRESSION: Enkb-nw-nksxlvpt degenerative changes with central and foraminal stenosis at several levels as detailed above Electronically authenticated by: STEVE ALEJANDRE Date: 2021-01-13 11:45 Normal [facility] XR FOREIGN BODY EYEon 2020 XR FOREIGN BODY EYE EXAMINATION: XR FOREIGN BODY EYE HISTORY: Foreign body in eye COMPARISON: No relevant comparison available. FINDINGS: ORBITS: Negative for a metallic foreign body. OTHER: Negative. IMPRESSION: No metallic foreign body in the orbits Electronically authenticated by: STEVE ALEJANDRE Date: 2021-01-13 09:30 Normal [facility] CNPIzzy 12-13-2020 CNPN Telephone (PODCCP) JOSEPH JACOME ([id number]) 1960 M Date Time Provider Department 12/13/20 MARISA THOMSON PODCCP During your visit today, we recorded the following information about you: Thuximena Napier 12/13/2020 2:01 PM Signed Reason for call: Mrs. Jacome called and would like to cancel her husbands appointments with Dr. Corea. Contact Name (if not the patient) Valeri Jacome Home and cell number [phone] Diagnosis Na Best regards, Thu Allergies As of Date: 12/13/2020 (No Known Allergies) Date Reviewed: 11/13/2019 Reviewed by: Ira Fallon) MARCOS Nieto - Fully Assessed Reason for Visit: Appointment [186] Prescriptions as of 12/13/2020 - metoprolol tartrate, short acting, (LOPRESSOR) 100 mg tablet Take 100 mg by mouth once daily. - lisinopril-hydrochlor othiazide (PRINZIDE,ZESTORETIC) 20-12.5 mg per tablet Take 1 tablet by mouth once daily. - Gsmof-7-GFA-EPA-Fish Oil (FISH OIL) 1,000 mg (120 mg-180 mg) cap Take 2 g by mouth once daily. - vitamin B complex (B COMPLEX-100 ORAL) Take by mouth once daily. - atorvastatin (LIPITOR) 80 mg tablet Take 80 mg by mouth once daily. - traZODone (DESYREL) 150 mg tablet Take 150 mg by mouth daily at bedtime. - aspirin, enteric coated (ASPIRIN, ENTERIC COATED) 81 mg EC tablet Take 81 mg by mouth once daily. - ascorbic acid (VITAMIN C ORAL) Take by mouth once daily. Problem List As Of Date 12/13/2020 Noted Resolved Left basal ganglia embolic stroke (HCC) [I63.9] 2018 Carotid stenosis, asymptomatic, bilateral [I65.*11/13/2019 Atherosclerosis of [place] arteries of extremity*11/13/2019 Centrilobular emphysema (HCC) [J43.2] 11/13/2019 Tobacco use disorder [F17.200] 11/13/2019 Essential (primary) hypertension [I10] 11/13/2019 Mixed hyperlipidemia [E78.2] 11/13/2019 Encounter Status:Closed by THU NAPIER on 12/13/20 [facility] Divya 12-04-2020 KATALINAN Telephone (VASSMN) JOSEPH JACOME ([id number]) 1960 Date Time Provider Department 12/04/20 KEERTHI PATEL During your visit today, we recorded the following information about you: Alexus Shaw 12/04/2020 10:09 AM Signed Patient scheduled for Carotid Duplex/TERE and OV with Dr. Corea. Reminder sent via mail. Alexus Shaw Allergies As of Date: 12/04/2020 (No Known Allergies) Date Reviewed: 11/13/2019 Reviewed by: Ira (Marcos) MARCOS Nieto - Fully Assessed Reason for Visit: Appointment [186] Prescriptions as of 12/04/2020 - metoprolol tartrate, short acting, (LOPRESSOR) 100 mg tablet Take 100 mg by mouth once daily. - lisinopril-hydrochlor othiazide (PRINZIDE,ZESTORETIC) 20-12.5 mg per tablet Take 1 tablet by mouth once daily. - Vzeyz-9-JVQ-EPA-Fish Oil (FISH OIL) 1,000 mg (120 mg-180 mg) cap Take 2 g by mouth once daily. - vitamin B complex (B COMPLEX-100 ORAL) Take by mouth once daily. - atorvastatin (LIPITOR) 80 mg tablet Take 80 mg by mouth once daily. - traZODone (DESYREL) 150 mg tablet Take 150 mg by mouth daily at bedtime. - aspirin, enteric coated (ASPIRIN, ENTERIC COATED) 81 mg EC tablet Take 81 mg by mouth once daily. - ascorbic acid (VITAMIN C ORAL) Take by mouth once daily. Problem List As Of Date 12/04/2020 Noted Resolved Left basal ganglia embolic stroke (HCC) [I63.9] 2018 Carotid stenosis, asymptomatic, bilateral [I65.*11/13/2019 Atherosclerosis of [place] arteries of extremity*11/13/2019 Centrilobular emphysema (HCC) [J43.2] 11/13/2019 Tobacco use disorder [F17.200] 11/13/2019 Essential (primary) hypertension [I10] 11/13/2019 Mixed hyperlipidemia [E78.2] 11/13/2019 Encounter Status:Closed by ALEXUS SHAW on 12/04/20 Normal [facility] US art pvr/post Dylan 021 art pvr/post LE [facility] [place] [address] Ultrasound Report Signed Patient: Joseph Jacome MR#: [id number] : 1960 Acct:[id number] Age/Sex: 60 / M ADM Date: 11/15/20 Loc: Room: Type: [facility] [address] Attending Dr: Brandon Molina MD Ordering Provider: Brandon Molina MD Date of Service: 11/15/20 US/US art pvr/post LE: I70.213 Copies to: Brandon Molina MD Bilateral lower extremity segmental arterial Doppler examination Indication for study: Leg pain PROCEDURE: The right arm blood pressure is 144 the left arm blood pressure is 135 mmHg. In the patient's right leg at rest the low thigh pressure is 181, calf pressure 164, ankle pressure in the posterior tibial 148, and ankle pressure in the dorsalis pedis 131 mmHg. This gives a highest resting right ankle-brachial index of 1.03. In the left leg pressure in the low thigh is 171, calf pressure 160, ankle pressure in the posterior tibial 143, and ankle pressure in the dorsalis pedis 137 mmHg. This gives a highest left resting ankle-brachial index of 0.99. The plethysmographic waveforms are normal bilaterally at rest. The patient is then walked for a total of 7 minutes. She reported that at 1 minute and walking. Hip pain. At 3 minutes and walking the vein in his hips was worse and 6 minutes he had significant right more than left hip pain. The ankle-brachial index remains normal after walking despite the discomfort in his legs. Immediately post walking the right ankle-brachial index is 1.01 and the left is 0.99. US/US art pvr/post LE IMPRESSION: No hemodynamically significant peripheral vascular occlusive disease at rest or after walking. Impression dictated by: Brandon Molina M.D.11/15/2020 12:01 PM Dictation Location: [facility] Tech: Danette Pastor Transcribed By: KILLIAN 11/15/20 120 Dictated By: Brandon Molina MD 11/15/20 1159 Signed By: 11/15/20 1201 [facility] XR CSPINE MIN 4 VIEWSon XR CSPINE MIN 4 VIEWS EXAMINATION: XR CSPINE MIN 4 VIEWS HISTORY: Neck pain ; chronic cervical pain and left arm numbness; no known injury COMPARISON: No relevant comparison available. FINDINGS: BONES: Mild grade 1 anterior listhesis of C4 in relation to C3 and C5. No fracture, bone lesion, or facet joint disruption. Multilevel mild degenerative facet arthropathy. DISC SPACES: Mild narrowing C3-4, C5-6, C6-7. PARASPINOUS: Negative. No paraspinous abnormality is seen. OTHER: Negative. IMPRESSION: 1. Overall moderate degenerative changes of the cervical spine. Consider MRI for further evaluation. Electronically authenticated by: ALIREZA COLEMAN Date: 2020-09-12 14:11 Normal [facility] XR ABD FLAT_UPon 09-04-2020 XR ABD FLAT_UP EXAMINATION: XR ABD FLAT_UP HISTORY: Generalized abdominal tenderness ; umbilical pain for several months COMPARISON: CT abdomen pelvis 10/06/2019 FINDINGS: BOWEL GAS PATTERN: No abnormal dilation or suspicious fluid levels. Moderate stool burden. FREE AIR: None. CALCIFICATIONS: Marked atherosclerotic disease of the aorta and iliac arteries. BONES: Old, partially healed right 11th rib fracture. OTHER: Negative. IMPRESSION: 1. Normal bowel gas pattern. No acute or suspicious findings. 2. Marked atherosclerotic disease. Electronically authenticated by: ALIREZA COLEMAN Date: 2020-09-04 11:58 Normal [facility] XR MODIFIED BARIUM SWALLOWon 05-16-2020 XR MODIFIED BARIUM SWALLOW EXAMINATION: XR MODIFIED BARIUM SWALLOW HISTORY: Foreign body in respiratory tract COMPARISON: No relevant comparison available. TECHNIQUE: A swallowing evaluation was performed with fluoroscopy in the usual manner. Standard level fluoroscopic mode of operation utilized. 55 seconds of fluoroscopy Speech pathology was present. The procedure was recorded. FINDINGS: ORAL PHASE: Normal deglutition. PHARYNGEAL PHASE: Normal swallowing. ASPIRATION: None. STRUCTURE: Normal. No visible obstruction, stricture, or dilatation. OTHER: Negative. IMPRESSION: Normal exam Electronically authenticated by: STEVE ALEJANDRE Date: 2020-05-16 13:34 Normal [facility] MRI LSPINE WO CONon 04-24-19 21 MRI LSPINE WO CON EXAMINATION: MRI LSPINE WO CON HISTORY: Spinal stenosis , spondylosis, neurogenic claudication, chronic bilateral lower extremity weakness and pain when walking COMPARISON: No relevant comparison available. TECHNIQUE: A variety of imaging planes and parameters were utilized for visualization of suspected pathology. FINDINGS: For the purposes of numbering, sagittal T2 image # 10 extends from the T11 vertebral body superiorly to the S2 level inferiorly. PARASPINAL AREA: Normal with no visible mass. BONES: No fracture, pars defect, or osseous lesion. CORD/CAUDA EQUINA: Normal caliber, contour, and signal intensity. DISC LEVELS: 12-L1: No significant disc/facet abnormality, spinal stenosis, or foraminal stenosis. L1-L2: Early degenerative disc disease is present without focal protrusion or neural impingement. L2-L3: No significant disc/facet abnormality, spinal stenosis, or foraminal stenosis. L3-L4: No significant disc/facet abnormality, spinal stenosis, or foraminal stenosis. L4-L5: Moderate-marked central canal and bilateral foramen narrowing, right greater than left. Moderate diffuse disc bulging and mild bilateral degenerative facet arthropathy. Mild disc height reduction. L5-S1: Moderate foramen narrowing bilaterally. Mild central canal narrowing. Complete loss of disc space. Mild diffuse disc bulging. Mild/moderate degenerative facet arthropathy bilaterally. IMPRESSION: 1. Moderate or greater central canal and foramen narrowing at L4-5 which may contribute to the patient's symptoms. Moderate diffuse disc bulging and mild degenerative facet arthropathy contribute to these findings. 2. Moderate foramen narrowing at L5-S1 and marked degenerative disc disease. Electronically authenticated by: ALIREZA COLEMAN Date: 2020-04-23 14:01 Normal [facility] XR FOREIGN BODY EYEon 2020 XR FOREIGN BODY EYE EXAMINATION: XR FOREIGN BODY EYE HISTORY: Foreign body in eye COMPARISON: No relevant comparison available. FINDINGS: ORBITS: Negative for a metallic foreign body. OTHER: Negative. IMPRESSION: 1. No opaque foreign body within the orbits. Electronically authenticated by: ALIREZA COLEMAN Date: 2020-04-23 13:05 Normal [facility] Vital Signs Date Time Vital Sign Value Performing Clinician Facility 10-14-2022 12:46-0400 Body height 182.88 cm Jonathan Pierce Philo Work Phone: [facility] [employer] [address] [place] Work Phone: 10-14-2022 12:46-0400 Body mass index (BMI) [Ratio] 30.92 kg/m2 Jonathan [employer] Work Phone: [facility] [employer] [address] [place] Work Phone: 10-14-2022 12:46-0400 Body surface area Derived from formula 2.25 m2 Jonathan [employer] Work Phone: [facility] [employer] [address] [place] Work Phone: 10-14-2022 12:46-0400 Body weight 103.42 kg Jonathan Pierce Philo Work Phone: [facility] [employer] [address] [place] Work Phone: 10-14-2022 12:46-0400 Diastolic blood pressure 62 mm[Hg] Jonathan [employer] Work Phone: [facility] [employer] [address] [place] Work Phone: 10-14-2022 12:46-0400 Heart rate 78 /min Jonathan Pierce Philo Work Phone: [facility] [address] [place] Work Phone: 10-14-2022 12:46-0400 Systolic blood pressure 110 mm[Hg] Jonathan Still Work Phone: [facility] [address] [place] Work Phone: 10-15-2021 16:32-0400 Body height 182.88 cm Marisa Thomson Work Phone: [facility] [address] Work Phone: 10-15-2021 16:32-0400 Body mass index (BMI) [Ratio] 29.57 kg/m2 Marisa Thomson Work Phone: [facility] [address] Work Phone: 10-15-2021 16:32-0400 Body surface area Derived from formula 2.21 m2 Marisa Thomson Work Phone: [facility] [address] Work Phone: 10-15-2021 16:32-0400 Body weight 98.88 kg Marisa Thomson Work Phone: [facility] [address] Work Phone: 10-15-2021 16:32-0400 Diastolic blood pressure 60 mm[Hg] Marisa Thomson Work Phone: [facility] [address] Work Phone: 10-15-2021 16:32-0400 Heart rate 72 /min Marisa Thomson Work Phone: [facility] [address] Work Phone: 10-15-2021 16:32-0400 Systolic blood pressure 118 mm[Hg] Marisa Thomson Work Phone: [facility] [address] Work Phone: 11-19-2020 14:30-0400 Body height 177.8 cm Brandon Molina Other [facility] Other 11-19-2020 14:30-0400 Body mass index (BMI) [Ratio] 30.42 kg/m2 Brandon Molina Other [facility] Other 11-19-2020 14:30-0400 Body temperature 99.1 [degF] Brandon Molina Other [facility] Other 11-19-2020 14:30-0400 Body weight 96.16 kg Brandon Molina Other [facility] Other 11-19-2020 14:30-0400 Diastolic blood pressure 60 mm[Hg] Brandon Molina Other [facility] Other 11-19-2020 14:30-0400 SaO2% (BldA) [Mass fraction] 94 % Brandon Molnia Other [facility] Other 11-19-2020 14:30-0400 Systolic blood pressure 128 mm[Hg] Brandon Augustinrejose Other [facility] Other Encounters Encounter Date Encounter Type Care Provider Facility Start: 10-14-2022 Office outpatient visit 15 minutes Jonathan Still Work Phone: [facility] [address] [place] Work Phone: Start: 10-14-[address] Marisa Thomson F acility: Start: 08-24-2022 Rx Renewal Marisa Thomson Work Phone: [facility] [address] [place] Work Phone: Start: 04-25-2022 ambulatory Facility:Annalise Randall Start: 03-02-2022 Office outpatient ne w 45 minutes Arnav Leyva [facility] Start: 03-02-2022 End: 03-02-2022 ambulatory MD Marisa Thomson Work Phone: [facility] Work Phone: Start: 03-02-2022 End: 03-02-2022 Patient encounter procedure MD Marisa Thomson Work Phone: [facility] Start: 01-02-2022 AUDIT Marisa hTomson Work Phone: [facility] [address] DO Work Phone: Start: 10-15-2021 Office outpatient visit 15 minutes Marisa Thomson Work Phone: [facility] [address] [place] Work Phone: Start: 08-04-2021 Rx Renewal Venecia christensen MD Work Phone: [facility] [address] [place] Work Phone: Start: 03-06-2021 End: 03-07-[address] MARISA THOMSON Facility:[facility] Start: 02-09-2021 End: 03-03-2021 ambulatory ROSA RAE Facility:[facility] Start: 02-05-2021 End: 02-07-[address] DOCTOR NGUYEN Facility:[facility] Start: 01-16-2021 End: 01-17-[address] ALIREZA COLEMAN Facility:[facility] Start: 01-13-2021 End: 01-14-[address] MARISA THOMSON Facility:[facility] Start: 11-19-2020 Office outpatient visit 15 minutes Brandon Molina [facility] V[facility] Start: 09-25-2020 End: 10-07-[address] MARISA THOMSON Facility:[facility] Start: 09-12-2020 End: 09-13-[address] MARISA THOMSON Facility:[facility] Start: 09-03-2020 End: 09-04-[address] MARISA THOMSON Facility:[facility] Start: 05-16-2020 End: 05-17-[address] CYN ROCA Facility:[facility] Start: 04-23-2020 End: 04-24-[address] MARISA THOMSON Facility:[facility] Start: 06-17-2017 Ambulatory VENECIA GARCIA Facruthy lity:[id number] Procedures Date Procedure Procedure Detail Performing Clinician Start: 03-02-2022 Plain X-ray of right shoulder MD Marisa Thomson Work Phone: Start: 03-06-[address] DOCTOR NGUYEN Comment on above: Performed By: #### D ATTSH, DATPSA, DATBMP ####[facility] [id number] [place] [id number] Schaefer Appendectomy Venecia garcia MD Work Phone: Colonoscopy Venecia garcia MD Work Phone: Comment on above: Steve sloan; Procedure on back Venecia smith MD Work Phone: Repair of musculoten dinous cuff of shoulder Venecia Garcia MD Work Phone: Plan of Treatment Date Care Activity Detail Author Start: 10-19-2023 FUV, Provider: Venecia Garcia, Status: Pen, Time: 1:00 PM FUV, Provider: Venecia Garcia, Status: Pen, Time: 1:00 PM [place] [address] [place] Work Phone: Start: 10-14-2022 FUV, Provider: Venecia Garcia, Status: Pen, Time: 1:00 PM FUV, Provider: Venecia Garcia, Status: Pen, Time: 1:00 PM [facility] [address] DO Work Phone: Start: 10-15-2021 FUV, Provider: Venecia Garcia, Status: Pen, Time: 3:50 PM FUV, Provider: Venecia Garcia, Status: Pen, Time: 3:[address] [place] Work Phone: Immunizations Immunization Date Immunization Notes Care Provider Zaheer santos 03-25-2016 tetanus toxoid, redu sanjana diphtheria toxoid, and acellular pertussis vaccine, adsorbed Marisa Thomson Work Phone: [place] [address] DO Work Phone: 03-13-2015 tetanus toxoid, redu sanjana diphtheria toxoid, and acellular pertussis vaccine, adsorbed Marisa Thomson Work Phone: [place] [address] DO Work Phone: Payers Date Payer Category Payer Unknown [id number] 1960 Unknown [id number] 2.16.84 [id number] 1960 Unknown [id number] 2.16.84 [id number] 1960 Unknown [id number] 2.16.84 [id number] 1960 Unknown [id number] 2.16.84 [id number] 1960 Unknown [id number] 2.16.84 [id number] 1960 Unknown [id number] 2.16.84 [id number] 1960 Unknown [id number] 2.16.84 0.1.601589.3.579.2.593 1960 Unknown [id number] 2.16.84 [id number] 1960 Unknown [id number] 2.16.84 0.1.677118.3.579.2.593 1960 Unknown [id number] 2.16.84 [id number] 1960 Unknown [id number] 2.16.8 [id number] 1960 Unknown [id number] 2.16. [id number] 1959 Self-pay [id number] Self-pay Self Pay [id number] Unknown [id number] 2.16.84 [id number] Unknown [facility] Social History Date Type Detail Facility Unknown if ever smoked [facility] Other Sex Assigned At Sex Assigned At Bir th [facility] Other Consumes alcohol [facility] [employer] Work Phone: Comment on above: few drinks daily; pop daily; 1 PPD; on Fridays a couple; Start: 1960 Sex Assigned At Male [facility] Evaluation note 03-02-2022 Note Date & Type Note Facility 03-02-2022 Evaluation note Encounter Date Diagnosis Assessment Notes Feb, Acute pain of right shoulder (ICD-10 - M25.511) Feb, Internal derangement of right shoulder (ICD-10 - M24.811) Feb, Impingement of right shoulder (ICD-10 - M25.811) Joseph presents with right shoulder pain and subacromial impingement. At this juncture we have discussed the findings and diagnosis as well as personally reviewed appropriate imaging and performed interpretation of related testing and examination with the patient in office today. Prior medical notes from Dr. Thomson and history have been reviewed. I recommend conservative treatment for this. He does have a smoking history as well as an alcoholic liver disease. He can try anti-inflammato tom as needed if okay with primary physician. I have offered a cortisone injection which she would like to try today. Today under sterile technique the patient's right shoulder was injected via the posterior portal with 4 cc Marcaine 1 cc of Kenalog he tolerated this well. He did have some symptom improvement. He can follow-up as needed for this. The patient has been involved in our cooperative treatment plan and agrees to move forward with treatment at this time. Extensive discussion about current condition and treatment options available. Patient was prepped and cortisone was injected into the right shoulder under sterile conditions. Patient tolerated well with no signs of adverse reactions. Feb, Other See orders for this visit as documented in the electronic medical record. [facility] Other Evaluation note 11-19-2020 Note Date & Type Note Facility 11-19-2020 Evaluation note Encounter Date Diagnosis Assessment Notes Nov, Smoker (ICD-10 - F17.200) We discussed the overall health risks associated with cigarette smoking. He is uninterested in smoking cessation at this time. Nov, Hip pain (ICD-10 - M25.559) Extensive discussion with the patient today covering the results of his recent PVR testing indicating no hemodynamically significant peripheral vascular occlusive disease at rest or after. These test results were discussed with he and his at length. Recommend follow-up with his primary care provider and neurosurgeon for his continued reports of back pain and bilateral hip pain with activity. All of his questions were answered. No scheduled follow-up is necessary, patient to return or call if any additional issues or concerns arise. [facility] Other Evaluation note Note Date & Type Note Facility Evaluation note No assessment information availa [facility] Work Phone: History general Narrative - Reported Note Date & Type Note Facility History general Narrative - Reported Type Medical History HTN Medical History hyperlipidemia Medical History bipolar Medical History AAA Surgical History back surgery Surgical History appendectomy Surgical History rotator cuff-LEFT Hospitalization History shoulder surgery sep Hospitalization History appendectomy Hospitalization History TIA [facility] Other History of Present illness Narrative Note Date & Type Note Facility History of Present illness Narrative Is here for follow-up continue management for previous evaluation for symptoms of fatigue, tiredness and shortness of breath. His cardiac work-up was benign. He continues to smoke. He denies complaint of chest pain, palpitation, lightheadedness, dizziness or syncope. He described compliance with his medication.ASSESSMENT:1. Prior evaluation of fatigue, tiredness, and shortness of breath, improved. Stress test is negative.2. Severe hypertriglyceridemia, markedly improved3. Active tobacco use and chronic obstructive pulmonary disease.4. Obesity. With no weight changes5. Hypertension, controlled.6. Prior lacunar infarct presented with paresthesia. Symptoms has resolvedRECOMMENDATION:1. The patient was counseled regarding risk factor adjustment.2. The patient was advised to continue his effort to lose weight to exercise and stop smoking.3. The patient continued to follow low-cholesterol, low-fat diet.4. I recommended follow-up in 1 year and a plan to repeat his lab work [facility] [employer] Work Phone: History of Present illness Narrative Note Date & Type Note Facility History of Present illness Narrative Is here for follow-up continue management for previous evaluation for symptoms of fatigue, tiredness and shortness of breath. His cardiac work-up was benign. He continues to smoke. He denies complaint of chest pain, palpitation, lightheadedness, dizziness or syncope. He described compliance with his medication.ASSESSMENT:1. Prior evaluation of fatigue, tiredness, and shortness of breath, improved. Stress test is negative.2. Severe hypertriglyceridemia, markedly improved3. Active tobacco use and chronic obstructive pulmonary disease.4. Obesity. With no weight changes5. Hypertension, controlled.6. Prior lacunar infarct presented with paresthesia. Symptoms has resolvedRECOMMENDATION:1. The patient was counseled regarding risk factor adjustment.2. The patient was advised to continue his effort to lose weight to exercise and stop smoking.3. The patient continued to follow low-cholesterol, low-fat diet.4. I recommended follow-up in 1 year and a plan to repeat his lab work [employer] Work Phone: History of Present illness Narrative Note Date & Type Note Facility History of Present illness Narrative Patient is here for follow-up continue management for previous evaluation for shortness of breath fatigue and tiredness, hyperlipidemia, tobacco use and obesity. Since last time I saw him he denies any cardiac complaint of chest pain, palpitation, lightheadedness, dizziness or syncope. He failed to do his lab work as ordered.ASSESSMENT:1. Prior evaluation of fatigue, tiredness, and shortness of breath, improved. Stress test is negative. He reports marked improvement and described functional class I2. Severe hypertriglyceridemia, he failed to do his lab work3. Active tobacco use and chronic obstructive pulmonary disease.4. Obesity. With recent 10 pound weight gain5. Hypertension, controlled.6. Prior lacunar infarct presented with paresthesia. Symptoms has resolvedRECOMMENDATION:1. The patient was counseled regarding risk factor adjustment.2. The patient was advised to continue his effort to lose weight to exercise and stop smoking.3. The patient continued to follow low-cholesterol, low-fat diet.4. I recommended follow-up in 1 year and a plan to repeat his lab work now and prior to next year's office visit [address] Work Phone: Summary Purpose Family History No Family History Records FoundUnknown Family Member Name Dates Details Family history of arterioscl erotic cardiovascular disease: Father(V17.49, Z82.49) Status:Active Family history of malignant neoplasm of breast: Mother(V16.3, Z80.3) Status:Active Unknown Family Member Name Dates Details Family history of arterioscl erotic cardiovascular disease: Father(V17.49, Z82.49) Status:Active Family history of malignant neoplasm of breast: Mother(V16.3, Z80.3) Status:Active Unknown Family Member Name Dates Details Family history of malignant neoplasm of breast: Mother(V16.3, Z80.3) Status:Active Family history of arterioscl erotic cardiovascular disease: Father(V17.49, Z82.49) Status:Active Unknown Family Member Name Dates Details Family history of arterioscl erotic cardiovascular disease: Father(V17.49, Z82.49) Status:Active Family history of malignant neoplasm of breast: Mother(V16.3, Z80.3) Status:Active Unknown Family Member Name Dates Details Family history of arterioscl erotic cardiovascular disease: Father(V17.49, Z82.49) Status:Active Family history of malignant neoplasm of breast: Mother(V16.3, Z80.3) Status:Active Unknown Family Member Name Dates Details Family history of malignant neoplasm of breast: Mother(V16.3, Z80.3) Status:Active Family history of arterioscl erotic cardiovascular disease: Father(V17.49, Z82.49) Status:Active Advance Directives No Advanced Directives Records Found Advance Directive Response Recorded Date/ Time Advance Directives No October 1:29pm Chief Complaint JOSEPH JACOME is being seen for a 9 month follow-up of.JOSEPH JACOME is being seen for a 9 month follow-up of.JOSEPH JACOME is being seen for an annual follow-up of. Additional Source Comments (unrecognized sect ion and content) No Status Records FoundNo Status Records FoundNo Status Records FoundNo Status Records FoundNo Status Records FoundNo Status Records FoundNo Status Records Found INFORMATION SOURCE (unrecogn ized section and content) DATE CREATED AUTHOR 07/28/2017 [facility] DATE CREATED AUTHOR AUTHOR'S ORGANIZ ATION 12/13/2020 [facility] DATE CREATED AUTHOR AUTHOR'S ORGANIZ ATION 03/03/2021 [facility] DATE CREATED AUTHOR AUTHOR'S ORGANIZ ATION 03/19/2021 [facility] DATE CREATED AUTHOR AUTHOR'S ORGANIZ ATION 04/25/2022 [facility] DATE CREATED AUTHOR AUTHOR'S ORGANIZ ATION 10/15/2022 [facility] DATE CREATED AUTHOR AUTHOR'S ORGANIZ ATION 10/15/2022 [employer] REASON FOR VISIT (unrecogniz ed section and content) VASC 3 WK FU; PVR'S [facility] Shoulder Pain Care Teams (unrecognized sec tion and content) Team Status: Inactive Member Role Status Dates Marisa Thomson MD Primary Care Provider Active Arnav Leyva DO Attending Provider Active Team Status: Active Member Role Status Dates Marisa Thomson MD Primary Care Provider Active Goals (unrecognized section and content) Goals may be documented in a n alternate section FOR RECORDS PERTAINING TO PATIENTS WHO ARE OR HAVE BEEN ENROLLED IN A CHEMICAL DEPENDENCY/SUBSTANCEABUSE PROGRAM, SOME INFORMATION MAY BE OMITTED. This clinical summary was aggregated from multiple sources. Caution should be exercised in using it in the provision of clinical care. This summary normalizes information from multiple sources, and as a consequence, information in this document may materially change the coding, format and clinical context of patient data. In addition, data may be omitted in some cases. CLINICAL DECISIONS SHOULD BE BASED ON THE PRIMARY CLINICAL RECORDS. [facility], [facility]. provides no warranty or guarantee of the accuracy or completeness of information in this document.
[2023-02-05 14:36] LABS: D Dimer 1.38 mg/L FEU (<=0.59)
== END 2023-02-05 13:59 | disposition home or self-care (01) ==
LOC: LAB 13:59
PROVIDERS: PCP Nurse Practitioner; Visit Provider Nurse Practitioner
DX: R06.02 Shortness of breath (principal); R07.89 Other chest pain
CPT/HCPCS: 36415; 85378

== ENCOUNTER 2023-10-14 08:26 | Outpatient (OUT) | payer OTHER, SELFPAY ==
[2023-10-14 09:30] LABS: Alanine Aminotransferase 42 U/L (16-63); Aspartate Amino Transferase 25 U/L (15-37); BUN Creatinine Ratio 18.9; Calcium 8.9 mg/dL (8.5-10.1); Chloride 101 mmol/L (98-107); Chol HDL Ratio 4.2; Cholesterol 152 mg/dL (<=200); Estimated GFR (African America >60 (>=60); Estimated GFR (Non-African Ame >60 (>=60); Glucose 96 mg/dL (74-106); HDL Cholesterol 36 mg/dL (40-60); Potassium 4.3 mmol/L (3.5-5.1); Sodium 137 mmol/L (136-145); Triglycerides 239 mg/dL (<=150); VLDL CHOLESTEROL 47.8 mg/dL
[2023-10-14 09:42] LABS: Anion Gap 12.6; Carbon Dioxide 27.7 mmol/L (21.0-32.0)
== END 2023-10-14 08:27 | disposition home or self-care (01) ==
LOC: LAB 08:26
PROVIDERS: PCP Nurse Practitioner; Visit Provider Internal Medicine Cardiovascular Disease
DX: I10 Essential (primary) hypertension (principal); E78.5 Hyperlipidemia, unspecified
CPT/HCPCS: 36415; 80048; 80061; 84450; 84460